=== PATIENT | male | born 1945 | race African-American/Black ===

== ENCOUNTER 2021-01-27 08:12 | Inpatient (IN) | payer OTHER ==
[2021-01-27 08:30] VITALS: BMI 36.8
[2021-01-27 10:13] LABS: BASO % 0.4 % (0-2.0); EOS % 0.5 % (0-4.5); HEMATOCRIT 40.9 % (35.4-49); HEMOGLOBIN 13.7 GM/dL (11.7-16.9); LYMPH % 10.9 % (8-40); MCHC 33.6 g/dl (32.0-35.9); MEAN CELL VOLUME 86.5 fl (80-96); MEAN PLT VOLUME 7.8 fl (7.5-11.1); MONO % 4.1 % (3.8-10.2); NEUT % 84.1 % (42.8-82.8); PLATELET COUNT 237 10^3/uL (134-434); RBC 4.73 M/mm3 (4.00-5.60); RDW 15.4 % (11.9-15.9); WHITE BLOOD COUNT 8.9 K/mm3 (4.0-10.0)
[2021-01-27 10:29] LABS: CHLORIDE 109 mmol/L (98-107); SODIUM 140 mmol/L (136-145)
[2021-01-27 10:31] LABS: ALBUMIN 3.5 g/dl (3.4-5.0); ANION GAP 6 MMOL/L (8-16); BLOOD UREA NITROGEN 14.1 mg/dL (7-18); CALCIUM 8.7 mg/dL (8.5-10.1); CO2 25 mmol/L (21-32)
[2021-01-27 10:32] LABS: GLUCOSE,RANDOM 95 mg/dL (74-106)
[2021-01-27 10:34] LABS: SGPT/ALT 56 U/L (13-61)
[2021-01-27 10:35] LABS: SGOT/AST 45 U/L (15-37)
[2021-01-27 10:36] LABS: BILIRUBIN,TOTAL 0.7 mg/dL (0.2-1); TOT PROT 7.6 g/dl (6.4-8.2)
[2021-01-27 10:37] LABS: ALK PHOS 135 U/L (45-117)
[2021-01-27] MEDS ORDERED: levETIRAcetam 500 MG/5 ML INJECTION VIAL IVPB ONE ×3 (11:07→11:33)
[2021-01-27 11:47] LABS: URINE APPEARANCE CLEAR; URINE BILIRUBIN NEGATIVE (NEGATIVE); URINE COLOR YELLOW; URINE GLUCOSE (UA) NEGATIVE (NEGATIVE); URINE KETONE NEGATIVE (NEGATIVE); URINE LEUK ESTERASE NEGATIVE (NEGATIVE); URINE NITRITE NEGATIVE (NEGATIVE); URINE PROTEIN NEGATIVE (NEGATIVE)
[2021-01-27] MEDS ORDERED: MIDAZOLAM HCL 2 MG/2 ML SINGLE DOSE VIAL IVPUSH ONE (14:56)
[2021-01-27] MEDS ORDERED: MIDAZOLAM HCL 2 MG/2 ML SINGLE DOSE VIAL ONE (15:02)
[2021-01-27] MEDS ORDERED: ENOXAPARIN NA (PORCINE) 100 MG/1 ML DISP.SYRIN SQ ONE ×2 (15:45→15:58)
[2021-01-27] MEDS: ENOXAPARIN NA (PORCINE) 120 MG/0.8 ML DISP.SYRIN SQ SCH (21:21)
[2021-01-27] MEDS: ATORVASTATIN CA 80 MG TABLET (FP) PO SCH (22:33)
[2021-01-27] MEDS: levETIRAcetam 500 MG TABLET (FP) PO SCH (22:33)
[2021-01-28] MEDS ORDERED: PT OWN MED DRAWER 7, Y5N ONE ×2 (06:24→17:57)
[2021-01-28] MEDS: ENOXAPARIN NA (PORCINE) 120 MG/0.8 ML DISP.SYRIN SQ SCH ×2 (06:25→18:06)
[2021-01-28 07:10] LABS: BASO % 0.7 % (0-2.0); EOS % 0.1 % (0-4.5); HEMATOCRIT 35.7 % (35.4-49); HEMOGLOBIN 12.4 GM/dL (11.7-16.9); LYMPH % 18.2 % (8-40); MCH 29.4 pg (25.7-33.7); MCHC 34.8 g/dl (32.0-35.9); MEAN CELL VOLUME 84.4 fl (80-96); MEAN PLT VOLUME 8.5 fl (7.5-11.1); MONO % 5.7 % (3.8-10.2); NEUT % 75.3 % (42.8-82.8); PLATELET COUNT 221 10^3/uL (134-434); RBC 4.23 M/mm3 (4.00-5.60); RDW 15.2 % (11.9-15.9); WHITE BLOOD COUNT 7.9 K/mm3 (4.0-10.0)
[2021-01-28 07:18] LABS: INR 1.18 (0.83-1.09); PROTHROMBIN TIME (PATIENT) 14.5 SEC (9.7-13.0)
[2021-01-28 07:28] LABS: CHLORIDE 108 mmol/L (98-107); SODIUM 140 mmol/L (136-145)
[2021-01-28 07:33] LABS: ALBUMIN 3.2 g/dl (3.4-5.0); ANION GAP 7 MMOL/L (8-16); BLOOD UREA NITROGEN 14.1 mg/dL (7-18); CO2 25 mmol/L (21-32)
[2021-01-28 07:34] LABS: CALCIUM 8.3 mg/dL (8.5-10.1); GLUCOSE,RANDOM 94 mg/dL (74-106)
[2021-01-28 07:35] LABS: SGPT/ALT 45 U/L (13-61); TRIGLYCERIDES 38 mg/dL (0-150)
[2021-01-28 07:36] LABS: CHOLESTEROL 146 mg/dL (50-200); CREATININE 0.8 mg/dL (0.55-1.3); SGOT/AST 36 U/L (15-37)
[2021-01-28 07:37] LABS: LDL CHOLESTEROL (ONLY SJRH) 90 mg/dL (5-100); TOT PROT 6.9 g/dl (6.4-8.2)
[2021-01-28 07:38] LABS: ALK PHOS 109 U/L (45-117); HDL CHOLESTEROL 41 mg/dL (40-60)
[2021-01-28] MEDS: amLODIPine BESYLATE 5 MG TABLET (FP) PO SCH (09:11)
[2021-01-28] MEDS: levETIRAcetam 500 MG TABLET (FP) PO SCH ×2 (09:11→21:10)
[2021-01-28] MEDS: FINASTERIDE 5 MG TABLET (FP) PO SCH (09:12)
[2021-01-28] MEDS: metoPROLOL SUCCINATE 25 MG TAB.SR.24H (FP) PO SCH (09:12)
[2021-01-28] MEDS: ATORVASTATIN CA 80 MG TABLET (FP) PO SCH (21:10)
[2021-01-29] MEDS ORDERED: PT OWN MED DRAWER 7, Y5N ONE ×4 (06:03→21:42)
[2021-01-29] MEDS: ENOXAPARIN NA (PORCINE) 120 MG/0.8 ML DISP.SYRIN SQ SCH ×2 (07:01→17:24)
[2021-01-29] MEDS: FINASTERIDE 5 MG TABLET (FP) PO SCH (09:55)
[2021-01-29] MEDS: amLODIPine BESYLATE 5 MG TABLET (FP) PO SCH (09:55)
[2021-01-29] MEDS: levETIRAcetam 500 MG TABLET (FP) PO SCH ×2 (09:56→22:00)
[2021-01-29] MEDS: metoPROLOL SUCCINATE 25 MG TAB.SR.24H (FP) PO SCH (09:56)
[2021-01-29] MEDS: ATORVASTATIN CA 80 MG TABLET (FP) PO SCH (22:00)
[2021-01-30] MEDS: ENOXAPARIN NA (PORCINE) 120 MG/0.8 ML DISP.SYRIN SQ SCH ×2 (05:32→17:03)
[2021-01-30] MEDS: FINASTERIDE 5 MG TABLET (FP) PO SCH (09:27)
[2021-01-30] MEDS: metoPROLOL SUCCINATE 25 MG TAB.SR.24H (FP) PO SCH (09:27)
[2021-01-30] MEDS: amLODIPine BESYLATE 5 MG TABLET (FP) PO SCH (09:27)
[2021-01-30] MEDS: levETIRAcetam 500 MG TABLET (FP) PO SCH (09:27)
[2021-01-30] MEDS ORDERED: PT OWN MED DRAWER 7, Y5N ONE (16:47)
[2021-01-30 18:02] VITALS: BP 124/88; PULSE 71; TEMP 98.2
== END 2021-01-30 21:00 | DRG 101 ==
LOC: JER 08:12 → JERBED 12:16 → J4S 22:13
PROVIDERS: ADMIT Family Medicine; ATTEND Family Medicine
DX: G40.909 Epilepsy, unspecified, not intractable, without status epilepticus (principal); I82.413 Acute embolism and thrombosis of femoral vein, bilateral; I82.433 Acute embolism and thrombosis of popliteal vein, bilateral; R55 Syncope and collapse; D64.9 Anemia, unspecified; I10 Essential (primary) hypertension; E78.5 Hyperlipidemia, unspecified
CPT/HCPCS: 36415; 70450-TC; 71045-TC-FY; 71275-TC; 80053; 80061; 80177; 81003; 82550; 82962; 83036; 84443; 84484; 85025; 85610; 87086; 93005; 93010; 93970; 99285-25; C9803; Q9967; U0003; U0005